=== PATIENT | female | born 1955 | race Caucasian/White ===

== ENCOUNTER → 2018-05-07 | Outpatient (CLI) | payer OTHER | END | disposition home or self-care (01) | LOC: KCIC DEXA 12:10 | DX: M81.0 Age-related osteoporosis without current pathological fracture (principal); S42.391A Other fracture of shaft of right humerus, initial encounter for closed fracture; M85.88 Other specified disorders of bone density and structure, other site; Z79.52 Long term (current) use of systemic steroids; Z78.0 Asymptomatic menopausal state; X58.XXXA Exposure to other specified factors, initial encounter; Y93.89 Activity, other specified; Y92.89 Other specified places as the place of occurrence of the external cause; Y99.8 Other external cause status | CPT/HCPCS: 77080 ==